=== PATIENT | female | born 1980 | race Caucasian/White ===

== ENCOUNTER 2016-11-15 16:49 | Outpatient (CLI) | payer OTHER | END 2016-11-15 18:30 | disposition home or self-care (01) | LOC: GENOP 16:49 | DX: O99.89 Other specified diseases and conditions complicating pregnancy, childbirth and the puerperium (principal); R10.9 Unspecified abdominal pain; Z3A.29 29 weeks gestation of pregnancy | CPT/HCPCS: 81001; G0463 ==

== ENCOUNTER 2016-11-26 22:56 | Observation (INO) | payer OTHER ==
[~2016-11-26] VITALS: Ht 167.6 cm; Wt 117.9 kg
[2016-11-27 00:36] LABS: HEMOGLOBIN 12.5 gm/dl (12.3-15.3); RED BLOOD COUNT 4.26 M/UL (4.00-5.10); WHITE BLOOD COUNT 12.9 K/UL (4.5-11.0)
[2016-11-27 00:59] LABS: BUN/CREATININE RATIO 18 (0-10)
== END 2016-11-27 10:24 | disposition home or self-care (01) ==
LOC: GENOP 22:56 → OB 11-27 00:02
PROVIDERS: ADMIT Obstetrics & Gynecology
DX: O16.3 Unspecified maternal hypertension, third trimester (principal); Z3A.30 30 weeks gestation of pregnancy; Z88.2 Allergy status to sulfonamides; Z88.8 Allergy status to other drugs, medicaments and biological substances; Z90.49 Acquired absence of other specified parts of digestive tract; Z98.84 Bariatric surgery status; Z98.890 Other specified postprocedural states; Z79.899 Other long term (current) drug therapy
CPT/HCPCS: 80053; 81001; 84550; 85025; G0378; G0463

== ENCOUNTER 2016-11-28 21:15 | Outpatient (CLI) | payer OTHER ==
[2016-11-29 06:00] LABS: HEMOGLOBIN 11.5 gm/dl (12.3-15.3); RED BLOOD COUNT 3.96 M/UL (4.00-5.10)
[2016-11-29 06:03] LABS: WHITE BLOOD COUNT 9.5 K/UL (4.5-11.0)
== END 2016-11-29 09:03 | disposition home or self-care (01) ==
LOC: GENOP 21:15
PROVIDERS: Obstetrics & Gynecology
DX: O99.89 Other specified diseases and conditions complicating pregnancy, childbirth and the puerperium (principal); O16.3 Unspecified maternal hypertension, third trimester; H92.03 Otalgia, bilateral; R51 Headache; Z3A.31 31 weeks gestation of pregnancy
CPT/HCPCS: 36415; 82248; 82565; 84450; 84460; 84550; 85025; 85379; 85384; 85610; 85730; G0463

== ENCOUNTER → 2016-12-25 | Outpatient (CLI) | payer OTHER ==
[~2016-12-25] MED LIST: COLACE 100MG C100 MG PO
[2016-12-25 18:02] LABS: HEMOGLOBIN 12.2 gm/dl (12.3-15.3); RED BLOOD COUNT 4.18 M/UL (4.00-5.10); WHITE BLOOD COUNT 12.2 K/UL (4.5-11.0)
[2016-12-25 18:19] LABS: BUN/CREATININE RATIO 19 (0-10)
== END ==
LOC: LAB 17:37
PROVIDERS: Nurse Practitioner
DX: O26.893 Other specified pregnancy related conditions, third trimester (principal); Z3A.00 Weeks of gestation of pregnancy not specified
CPT/HCPCS: 36415; 80053; 82150; 83690; 85025

== ENCOUNTER 2017-01-02 17:07 | Inpatient (IN) | payer OTHER ==
[~2017-01-02] VITALS: Ht 167.6 cm; Wt 133.4 kg
[2017-01-02 17:47] LABS: HEMOGLOBIN 12.3 gm/dl (12.3-15.3); RED BLOOD COUNT 4.26 M/UL (4.00-5.10); WHITE BLOOD COUNT 10.2 K/UL (4.5-11.0)
[2017-01-02 18:20] LABS: BUN/CREATININE RATIO 20 (0-10)
[2017-01-05 07:13] LABS: HEMOGLOBIN 10.1 gm/dl (12.3-15.3)
[2017-01-07] MEDS ORDERED: COLACE 100MG C100 MG PO (11:30)
== END 2017-01-07 11:40 | disposition home or self-care (01) | DRG 765 ==
LOC: GENOP 17:07 → OB 17:22
PROVIDERS: Obstetrics & Gynecology; ADMIT Obstetrics & Gynecology
PROC: 3E033VJ Introduction of Other Hormone into Peripheral Vein, Percutaneous Approach (ICD-10-PCS; 2017-01-03)
PROC: 3E033VJ Introduction of Other Hormone into Peripheral Vein, Percutaneous Approach (ICD-10-PCS; 2017-01-04)
PROC: 10907ZC Drainage of Amniotic Fluid, Therapeutic from Products of Conception, Via Natural or Artificial Opening (ICD-10-PCS; 2017-01-04)
PROC: 10D00Z1 Extraction of Products of Conception, Low, Open Approach (ICD-10-PCS; principal; 2017-01-04 08:03)
PROC: 3E0234Z Introduction of Serum, Toxoid and Vaccine into Muscle, Percutaneous Approach (ICD-10-PCS; 2017-01-07)
DX: O13.4 Gestational [pregnancy-induced] hypertension without significant proteinuria, complicating childbirth (principal); Z68.42 Body mass index [BMI] 45.0-49.9, adult; O69.0XX0 Labor and delivery complicated by prolapse of cord, not applicable or unspecified; O24.424 Gestational diabetes mellitus in childbirth, insulin controlled; O60.14X0 Preterm labor third trimester with preterm delivery third trimester, not applicable or unspecified; O99.214 Obesity complicating childbirth; E66.01 Morbid (severe) obesity due to excess calories; O99.844 Bariatric surgery status complicating childbirth; O09.513 Supervision of elderly primigravida, third trimester; Z3A.36 36 weeks gestation of pregnancy; Z37.0 Single live birth; O34.43 Maternal care for other abnormalities of cervix, third trimester; N88.9 Noninflammatory disorder of cervix uteri, unspecified; O99.283 Endocrine, nutritional and metabolic diseases complicating pregnancy, third trimester; E28.2 Polycystic ovarian syndrome; O99.89 Other specified diseases and conditions complicating pregnancy, childbirth and the puerperium; M54.9 Dorsalgia, unspecified; O99.344 Other mental disorders complicating childbirth; F41.9 Anxiety disorder, unspecified; Z23 Encounter for immunization; Z87.442 Personal history of urinary calculi; Z79.4 Long term (current) use of insulin; Z79.899 Other long term (current) drug therapy; Z88.2 Allergy status to sulfonamides; Z90.49 Acquired absence of other specified parts of digestive tract; Z98.890 Other specified postprocedural states; Z82.0 Family history of epilepsy and other diseases of the nervous system; Z83.3 Family history of diabetes mellitus; Z82.5 Family history of asthma and other chronic lower respiratory diseases; Z80.9 Family history of malignant neoplasm, unspecified
CPT/HCPCS: 36415; 80048; 80076; 81001; 82800; 82962; 83735; 85014; 85018; 85025; 90715; C9113; J0456; J0690; J1650; J1815; J1885; J2250; J2270; J2274; J2300; J2405; J2550; J2590; J2765; J3010; J3475; J7030; J7050; J7120; Q0177

== ENCOUNTER → 2017-01-11 | Outpatient (CLI) | payer OTHER | LOC: CT 11:00 | DX: Z09 Encounter for follow-up examination after completed treatment for conditions other than malignant neoplasm (principal); R06.02 Shortness of breath; R06.2 Wheezing; J90 Pleural effusion, not elsewhere classified; R91.8 Other nonspecific abnormal finding of lung field; R18.8 Other ascites | CPT/HCPCS: J7050; Q9963 ==

== ENCOUNTER → 2020-08-15 | Outpatient (CLI) | payer OTHER | LOC: RAD 08:27 | DX: N20.0 Calculus of kidney (principal) | CPT/HCPCS: 74018 ==

== ENCOUNTER → 2020-08-31 | Outpatient (CLI) | payer OTHER, SELFPAY | LOC: KOH-I 12:00 | DX: N20.0 Calculus of kidney (principal); K44.9 Diaphragmatic hernia without obstruction or gangrene | CPT/HCPCS: 74176 ==

== ENCOUNTER → 2020-10-31 | Outpatient (CLI) | payer OTHER | LOC: RAD 09:51 | DX: N20.0 Calculus of kidney (principal) | CPT/HCPCS: 74018 ==

== ENCOUNTER → 2020-11-01 | Outpatient (CLI) | payer OTHER ==
[2020-11-01 12:51] LABS: HEMOGLOBIN 14.9 gm/dl (12.3-15.3); RED BLOOD COUNT 5.09 M/UL (4.00-5.10); WHITE BLOOD COUNT 6.4 K/UL (4.5-11.0)
[2020-11-01 13:44] LABS: BUN/CREATININE RATIO 12 (0-10)
== END ==
LOC: LAB 11:21
PROVIDERS: Family Medicine
DX: E11.9 Type 2 diabetes mellitus without complications (principal); E78.2 Mixed hyperlipidemia; E55.9 Vitamin D deficiency, unspecified; I10 Essential (primary) hypertension; E66.9 Obesity, unspecified; Z98.84 Bariatric surgery status
CPT/HCPCS: 36415; 80053; 80061; 82043; 82570; 82607; 83735; 84443; 85027

== ENCOUNTER → 2021-05-26 | Outpatient (CLI) | payer OTHER ==
[2021-05-26 08:25] LABS: HEMOGLOBIN 14.2 gm/dl (12.3-15.3); RED BLOOD COUNT 5.03 M/UL (4.00-5.10); WHITE BLOOD COUNT 6.1 K/UL (4.5-11.0)
[2021-05-26 08:33] LABS: BUN/CREATININE RATIO 11 (0-10)
== END ==
LOC: LAB 07:23
PROVIDERS: Family Medicine
DX: E55.9 Vitamin D deficiency, unspecified (principal); E78.2 Mixed hyperlipidemia; E11.9 Type 2 diabetes mellitus without complications; Z98.84 Bariatric surgery status
CPT/HCPCS: 36415; 80053; 80061; 82607; 83036; 85027

== ENCOUNTER → 2021-09-12 | Outpatient (CLI) | payer OTHER | LOC: RAD 12:30 | DX: U07.1 COVID-19 (principal) | CPT/HCPCS: 71046 ==

== ENCOUNTER → 2021-10-11 | Outpatient (CLI) | payer OTHER ==
[2021-10-11 10:28] LABS: HEMOGLOBIN 14.4 gm/dl (12.3-15.3); RED BLOOD COUNT 4.98 M/UL (4.00-5.10); WHITE BLOOD COUNT 6.9 K/UL (4.5-11.0)
[2021-10-12 07:11] LABS: ALKALINE PHOSPHATASE, S 92 IU/L (44-121); ALT (SGPT) 26 IU/L (0-32); AST (SGOT) 21 IU/L (0-40); BILIRUBIN, TOTAL 0.7 mg/dL (0.0-1.2); BUN 9 mg/dL (6-24); BUN/CREATININE RATIO 11 (9-23); CALCIUM, SERUM 9.3 mg/dL (8.7-10.2); CARBON DIOXIDE, TOTAL 24 mmol/L (20-29); CHLORIDE, SERUM 103 mmol/L (96-106); CREATININE, SERUM 0.79 mg/dL (0.57-1.00); GLOBULIN, TOTAL 2.2 g/dL (1.5-4.5); GLUCOSE, SERUM 192 mg/dL (65-99); POTASSIUM, SERUM 4.7 mmol/L (3.5-5.2); PROTEIN, TOTAL, SERUM 6.6 g/dL (6.0-8.5); SODIUM, SERUM 141 mmol/L (134-144)
[2021-10-12 08:15] LABS: CHOLESTEROL, TOTAL 191 mg/dL (100-199); HDL CHOLESTEROL 32 mg/dL (>39); LDL CHOLESTEROL CALC 127 mg/dL (0-99); TRIGLYCERIDES 178 mg/dL (0-149); VITAMIN D, 25-HYDROXY 15.1 ng/mL (30.0-100.0)
[2021-10-12 13:16] LABS: CREATININE, URINE 133.8 mg/dL (Not Estab.)
== END ==
LOC: LAB 09:45
PROVIDERS: Family Medicine
DX: E11.9 Type 2 diabetes mellitus without complications (principal); E78.2 Mixed hyperlipidemia; E55.9 Vitamin D deficiency, unspecified; Z98.84 Bariatric surgery status
CPT/HCPCS: 36415; 80053; 80061; 82043; 82570; 82607; 85027

== ENCOUNTER → 2021-12-12 | Outpatient (CLI) | payer OTHER | LOC: CT 12-05 08:30 | DX: N20.0 Calculus of kidney (principal) ==

== ENCOUNTER → 2022-03-16 | Outpatient (CLI) | payer OTHER ==
[2022-03-16 16:32] LABS: RED BLOOD COUNT 4.82 M/UL (4.00-5.10); WHITE BLOOD COUNT 7.2 K/UL (4.5-11.0)
[2022-03-16 16:53] LABS: BUN/CREATININE RATIO 11 (0-10)
== END ==
LOC: RT 15:49
PROVIDERS: Urology
DX: Z01.818 Encounter for other preprocedural examination (principal); N30.10 Interstitial cystitis (chronic) without hematuria; N32.9 Bladder disorder, unspecified; Z88.2 Allergy status to sulfonamides; Z88.1 Allergy status to other antibiotic agents
CPT/HCPCS: 36415; 71045; 74018; 80053; 81001; 84703; 85027; 93005